=== PATIENT | female | born 1945 | race Caucasian/White ===

== ENCOUNTER 2016-12-28 01:30 | Inpatient (IN) | payer MEDICARE, MEDICAID ==
[~2016-12-28] VITALS: Ht 157.5 cm; Wt 86.6 kg
[2016-12-29] MEDS ORDERED: MULT-516 PO (02:30)
[2016-12-29] MEDS ORDERED: METO10TA2 PO (02:30)
[2016-12-29] MEDS ORDERED: BISA10SU54 PR (02:30)
[2016-12-29] MEDS ORDERED: PANT40TA3 PO (02:30)
[2016-12-29] MEDS ORDERED: ZINC220C4 PO (02:30)
[2016-12-29] MEDS ORDERED: IBUP800T PO (02:30)
[2016-12-29] MEDS ORDERED: SENN8.6T4 PO (02:30)
[2016-12-29] MEDS ORDERED: TRAM50TA2 PO (02:30)
[2016-12-29] MEDS ORDERED: ASCO500T12 PO (02:30)
[2016-12-29] MEDS ORDERED: METH1TAB13 PO (02:30)
[2016-12-29 02:34] VITALS: BP 162/78
[2016-12-29] MEDS ORDERED: VANCOMYCIN PER PHARMACY MC PRN (04:00)
[2016-12-29] MEDS ORDERED: BISACODYL 10 MG SUPP PR PRN ×2 (04:00)
[2016-12-29] MEDS ORDERED: hydrALAzine 20 MG/ML, 1ML IVPush PRN (04:00)
[2016-12-29] MEDS ORDERED: VANCOMYCIN PMX 1GM/200ML 200 ML IV ONE (04:00)
[2016-12-29] MEDS ORDERED: ENALAPRILAT 1.25 MG/ML, 2ML IVPush PRN (04:00)
[2016-12-29] MEDS ORDERED: POLYETHYLENE GLYCOL 17 GM PACKET PO PRN (04:00)
[2016-12-29] MEDS ORDERED: ONDANSETRON 2MG/ML, 2ML IVPush PRN (04:00)
[2016-12-29] MEDS ORDERED: ACETAMINOPHEN 325 MG TABLET PO PRN (04:00)
[2016-12-29] MEDS ORDERED: OXYcodone IR 5MG TABLET PO PRN (04:00)
[2016-12-29] MEDS ORDERED: PIPERACILLIN/TAZO/PMX 3.375GM 50 ML IV SCH (04:00)
[2016-12-29] MEDS ORDERED: PHARMACOKINETIC MONITORING MC PRN (04:00)
[2016-12-29] MEDS: SODIUM CHLORIDE 0.9% 1,000 ML IV SCH ×2 (04:46→16:25)
[2016-12-29] MEDS ORDERED: VANCOMYCIN 1,500 MG in SODIUM CHLORIDE 0.9% 250 ML IV ONE (05:00)
[2016-12-29 06:07] LABS: ASPARTATE AMINO TRANSFERASE 16 U/L (15-37); BLOOD UREA NITROGEN 13 mg/dL (7-18)
[2016-12-29 06:11] LABS: ANISOCYTOSIS 1+; POLYCHROMASIA 1+
[2016-12-29 06:12] LABS: GIANT PLATELETS 1+; LARGE PLATELETS 1+
[2016-12-29 07:40] VITALS: BP 128/64
[2016-12-29] MEDS: MULTIVITAMIN 1 TABLET PO SCH (09:31)
[2016-12-29] MEDS: PANTOPROZOLE 40MG TABLET PO SCH (09:32)
[2016-12-29] MEDS: SENNA/DOCUSATE TABLET PO SCH (09:32)
[2016-12-29] MEDS: ASCORBIC ACID 500 MG TABLET PO SCH ×2 (09:32→21:00)
[2016-12-29] MEDS: AMPICILLIN/SULBACTAM 3 GM in SODIUM CHLORIDE 0.9% 100 ML IV SCH ×2 (12:21→18:21)
[2016-12-29] MEDS ORDERED: GADOBUTROL 7.5 MMOL/7.5 ML PFS ONE (12:47)
[2016-12-29 14:30] VITALS: BP 127/60
[2016-12-29 19:52] VITALS: BP 128/74
[2016-12-30] MEDS: AMPICILLIN/SULBACTAM 3 GM in SODIUM CHLORIDE 0.9% 100 ML IV SCH ×4 (00:14→22:23)
[2016-12-30 01:37] VITALS: BP 141/66
[2016-12-30 05:19] LABS: BLOOD UREA NITROGEN 9 mg/dL (7-18)
[2016-12-30] MEDS: SENNA/DOCUSATE TABLET PO SCH (08:06)
[2016-12-30] MEDS: PANTOPROZOLE 40MG TABLET PO SCH (08:06)
[2016-12-30] MEDS: MULTIVITAMIN 1 TABLET PO SCH (08:06)
[2016-12-30] MEDS: ASCORBIC ACID 500 MG TABLET PO SCH ×2 (08:07→22:23)
[2016-12-30 08:55] VITALS: BP 145/71
[2016-12-30] MEDS: VANCOMYCIN 1,500 MG in SODIUM CHLORIDE 0.9% 250 ML IV SCH (12:15)
[2016-12-30 13:15] VITALS: BP 159/69
[2016-12-30 21:05] VITALS: BP 154/56
[2016-12-31 02:51] VITALS: BP 139/68
[2016-12-31] MEDS: AMPICILLIN/SULBACTAM 3 GM in SODIUM CHLORIDE 0.9% 100 ML IV SCH ×4 (04:19→22:29)
[2016-12-31 05:50] LABS: BLOOD UREA NITROGEN 9 mg/dL (7-18)
[2016-12-31 07:18] VITALS: BP 133/73
[2016-12-31] MEDS ORDERED: POTASSIUM CHLORIDE 20 MEQ TAB.ER.PRT PO ONE ×2 (08:00)
[2016-12-31] MEDS: PANTOPROZOLE 40MG TABLET PO SCH (10:35)
[2016-12-31] MEDS: SENNA/DOCUSATE TABLET PO SCH (10:35)
[2016-12-31] MEDS: MULTIVITAMIN 1 TABLET PO SCH (10:35)
[2016-12-31] MEDS: ASCORBIC ACID 500 MG TABLET PO SCH ×2 (10:35→22:29)
[2016-12-31] MEDS: VANCOMYCIN 1,500 MG in SODIUM CHLORIDE 0.9% 250 ML IV SCH (11:00)
[2016-12-31 13:39] VITALS: BP 126/72
[2016-12-31 19:09] VITALS: BP 132/69
[2017-01-01 00:20] VITALS: BP 101/51
[2017-01-01] MEDS: AMPICILLIN/SULBACTAM 3 GM in SODIUM CHLORIDE 0.9% 100 ML IV SCH ×3 (04:02→16:31)
[2017-01-01 08:22] VITALS: BP 146/67
[2017-01-01] MEDS: SENNA/DOCUSATE TABLET PO SCH (09:46)
[2017-01-01] MEDS: MULTIVITAMIN 1 TABLET PO SCH (09:46)
[2017-01-01] MEDS: PANTOPROZOLE 40MG TABLET PO SCH (09:46)
[2017-01-01] MEDS: ASCORBIC ACID 500 MG TABLET PO SCH ×2 (09:46→20:01)
[2017-01-01] MEDS: VANCOMYCIN 1,500 MG in SODIUM CHLORIDE 0.9% 250 ML IV SCH (11:10)
[2017-01-01 13:11] VITALS: BP 134/71
[2017-01-01 19:45] VITALS: BP 150/60
[2017-01-01] MEDS: CEFTAROLINE 600 MG in SODIUM CHLORIDE 0.9% 100 ML IV SCH (20:02)
[2017-01-02 00:39] VITALS: BP 119/41
[2017-01-02 06:17] LABS: BLOOD UREA NITROGEN 7 mg/dL (7-18)
[2017-01-02 06:28] LABS: ANISOCYTOSIS 1+
[2017-01-02 06:29] LABS: GIANT PLATELETS 1+; LARGE PLATELETS 1+
[2017-01-02] MEDS: PANTOPROZOLE 40MG TABLET PO SCH (07:43)
[2017-01-02] MEDS: MULTIVITAMIN 1 TABLET PO SCH (07:43)
[2017-01-02] MEDS: ASCORBIC ACID 500 MG TABLET PO SCH ×2 (07:44→20:07)
[2017-01-02] MEDS: SENNA/DOCUSATE TABLET PO SCH (07:44)
[2017-01-02] MEDS: CEFTAROLINE 600 MG in SODIUM CHLORIDE 0.9% 100 ML IV SCH ×2 (08:27→19:14)
[2017-01-02 08:31] VITALS: BP 156/73
[2017-01-02] MEDS ORDERED: MIDAZOLAM 1 MG/ML, 2ML ONE (10:21)
[2017-01-02] MEDS ORDERED: FENTANYL PF 100 MCG/2ML ONE (10:21)
[2017-01-02] MEDS ORDERED: PROPOFOL 10 MG/ML, 20ML ONE (10:30)
[2017-01-02] MEDS ORDERED: EPHEDRINE 50 MG/ML, 1ML ONE (10:30)
[2017-01-02] MEDS ORDERED: EPINEPHRINE 1 MG/ML, 1ML ONE (10:30)
[2017-01-02 12:58] VITALS: BP 127/57
[2017-01-02 19:22] VITALS: BP 162/77
[2017-01-02 20:51] VITALS: BP 90/51
[2017-01-02] MEDS ORDERED: VANCOMYCIN 1,500 MG in SODIUM CHLORIDE 0.9% 250 ML IV SCH (23:00)
[2017-01-02 23:09] VITALS: BP 98/32
[2017-01-03 02:06] VITALS: BP 112/50
[2017-01-03] MEDS ORDERED: SODIUM CHLORIDE 0.9%, 500ML IVBOLUS ONE (05:00)
[2017-01-03 05:49] LABS: BLOOD UREA NITROGEN 10 mg/dL (7-18)
[2017-01-03 06:48] VITALS: BP 95/47
[2017-01-03] MEDS: CEFTAROLINE 600 MG in SODIUM CHLORIDE 0.9% 100 ML IV SCH ×2 (07:59→19:58)
[2017-01-03] MEDS: ASCORBIC ACID 500 MG TABLET PO SCH ×2 (08:09→21:51)
[2017-01-03] MEDS: MULTIVITAMIN 1 TABLET PO SCH (08:10)
[2017-01-03] MEDS: PANTOPROZOLE 40MG TABLET PO SCH (08:10)
[2017-01-03] MEDS: SENNA/DOCUSATE TABLET PO SCH (08:10)
[2017-01-03] MEDS ORDERED: MAGNESIUM SULFATE PMX 2GM/50ML 50 ML IV ONE (10:30)
[2017-01-03] MEDS: MICAFUNGIN 100 MG in SODIUM CHLORIDE 0.9% 100 ML IV SCH (12:37)
[2017-01-03 13:48] VITALS: BP 104/53
[2017-01-03 19:44] VITALS: BP 131/62
[2017-01-04 01:47] VITALS: BP 122/57
[2017-01-04 06:27] LABS: ASPARTATE AMINO TRANSFERASE 15 U/L (15-37); BLOOD UREA NITROGEN 10 mg/dL (7-18)
[2017-01-04 06:33] LABS: DIFF TOTAL CELLS COUNTED 100 CELL DIFF
[2017-01-04 06:34] LABS: ANISOCYTOSIS 1+; LARGE PLATELETS 1+; VERIFY COUNTS? YES
[2017-01-04] MEDS: CEFTAROLINE 600 MG in SODIUM CHLORIDE 0.9% 100 ML IV SCH ×2 (08:24→23:09)
[2017-01-04 09:02] VITALS: BP 118/79
[2017-01-04] MEDS: PANTOPROZOLE 40MG TABLET PO SCH (09:25)
[2017-01-04] MEDS: SENNA/DOCUSATE TABLET PO SCH (09:25)
[2017-01-04] MEDS: ASCORBIC ACID 500 MG TABLET PO SCH ×2 (09:26→21:29)
[2017-01-04] MEDS: MULTIVITAMIN 1 TABLET PO SCH (09:27)
[2017-01-04] MEDS: MICAFUNGIN 100 MG in SODIUM CHLORIDE 0.9% 100 ML IV SCH (13:04)
[2017-01-04 15:14] VITALS: BP 93/54
[2017-01-04] MEDS ORDERED: SODIUM CHLORIDE 0.9%, 500ML IVBOLUS ONE (17:00)
[2017-01-04 18:59] VITALS: BP 116/58
[2017-01-05 02:08] VITALS: BP 148/51
[2017-01-05 06:10] LABS: BLOOD UREA NITROGEN 12 mg/dL (7-18)
[2017-01-05 06:39] LABS: DIFF TOTAL CELLS COUNTED 100 CELL DIFF
[2017-01-05 06:41] LABS: ANISOCYTOSIS 1+; GIANT PLATELETS 1+; LARGE PLATELETS 1+; POLYCHROMASIA 1+; VERIFY COUNTS? YES
[2017-01-05 07:50] VITALS: BP 141/69
[2017-01-05] MEDS: SENNA/DOCUSATE TABLET PO SCH (09:52)
[2017-01-05] MEDS: PANTOPROZOLE 40MG TABLET PO SCH (09:52)
[2017-01-05] MEDS: MULTIVITAMIN 1 TABLET PO SCH (09:52)
[2017-01-05] MEDS: ASCORBIC ACID 500 MG TABLET PO SCH ×2 (09:52→21:45)
[2017-01-05] MEDS: CEFTAROLINE 600 MG in SODIUM CHLORIDE 0.9% 100 ML IV SCH ×2 (09:52→21:45)
[2017-01-05] MEDS: MICAFUNGIN 100 MG in SODIUM CHLORIDE 0.9% 100 ML IV SCH (12:00)
[2017-01-05] MEDS: FLUCONAZOLE 200 MG TABLET PO SCH (14:06)
[2017-01-05 14:14] VITALS: BP 106/53
[2017-01-05 18:36] VITALS: BP 114/62
[2017-01-05] MEDS: HEPARIN 5,000 UNITS/ML, 1ML SQ SCH (21:46)
[2017-01-06 02:03] VITALS: BP 101/53
[2017-01-06] MEDS: HEPARIN 5,000 UNITS/ML, 1ML SQ SCH ×3 (04:31→21:55)
[2017-01-06 05:02] LABS: BLOOD UREA NITROGEN 13 mg/dL (7-18)
[2017-01-06 08:08] VITALS: BP 115/55
[2017-01-06] MEDS: PANTOPROZOLE 40MG TABLET PO SCH (08:14)
[2017-01-06] MEDS: ASCORBIC ACID 500 MG TABLET PO SCH ×2 (08:14→21:55)
[2017-01-06] MEDS: SENNA/DOCUSATE TABLET PO SCH (08:15)
[2017-01-06] MEDS: MULTIVITAMIN 1 TABLET PO SCH (08:15)
[2017-01-06] MEDS: FLUCONAZOLE 200 MG TABLET PO SCH (08:15)
[2017-01-06] MEDS: CEFTAROLINE 600 MG in SODIUM CHLORIDE 0.9% 100 ML IV SCH ×2 (10:13→21:55)
[2017-01-06] MEDS ORDERED: PICC FLUSH PROTOCOL XX PRN (15:00)
[2017-01-06 16:00] VITALS: BP 134/58
[2017-01-06 18:42] VITALS: BP 109/56
[2017-01-07 02:08] VITALS: BP 128/46
[2017-01-07 05:26] LABS: BLOOD UREA NITROGEN 13 mg/dL (7-18)
[2017-01-07 05:30] LABS: ASPARTATE AMINO TRANSFERASE 14 U/L (15-37)
[2017-01-07] MEDS: HEPARIN 5,000 UNITS/ML, 1ML SQ SCH ×4 (06:03→23:26)
[2017-01-07 08:06] VITALS: BP 123/58
[2017-01-07] MEDS: FLUCONAZOLE 200 MG TABLET PO SCH (09:00)
[2017-01-07] MEDS: CEFTAROLINE 600 MG in SODIUM CHLORIDE 0.9% 100 ML IV SCH ×2 (09:39→23:26)
[2017-01-07] MEDS: SENNA/DOCUSATE TABLET PO SCH (09:40)
[2017-01-07] MEDS: ASCORBIC ACID 500 MG TABLET PO SCH ×2 (09:40→23:27)
[2017-01-07] MEDS: MULTIVITAMIN 1 TABLET PO SCH (09:40)
[2017-01-07] MEDS: PANTOPROZOLE 40MG TABLET PO SCH (09:40)
[2017-01-07] MEDS: MICAFUNGIN 100 MG in SODIUM CHLORIDE 0.9% 100 ML IV SCH (11:26)
[2017-01-07 13:09] VITALS: BP 147/62
[2017-01-07 19:05] VITALS: BP 134/55
[2017-01-08 02:47] VITALS: BP 127/55
[2017-01-08] MEDS: HEPARIN 5,000 UNITS/ML, 1ML SQ SCH ×3 (05:20→22:14)
[2017-01-08 05:31] LABS: BLOOD UREA NITROGEN 11 mg/dL (7-18)
[2017-01-08 06:09] LABS: ANISOCYTOSIS 1+; LARGE PLATELETS 1+; MICROCYTOSIS 1+; POLYCHROMASIA 1+
[2017-01-08 06:59] VITALS: BP 119/57
[2017-01-08] MEDS: PANTOPROZOLE 40MG TABLET PO SCH (09:30)
[2017-01-08] MEDS: MULTIVITAMIN 1 TABLET PO SCH (09:31)
[2017-01-08] MEDS: ASCORBIC ACID 500 MG TABLET PO SCH ×2 (09:31→22:13)
[2017-01-08] MEDS: SENNA/DOCUSATE TABLET PO SCH (09:35)
[2017-01-08] MEDS: CEFTAROLINE 600 MG in SODIUM CHLORIDE 0.9% 100 ML IV SCH ×2 (10:13→22:14)
[2017-01-08] MEDS: MICAFUNGIN 100 MG in SODIUM CHLORIDE 0.9% 100 ML IV SCH (11:47)
[2017-01-08 14:38] VITALS: BP 138/54
[2017-01-08 19:33] VITALS: BP 110/55
[2017-01-08] MEDS ORDERED: PICC FLUSH PROTOCOL XX PRN (20:00)
[2017-01-08] MEDS ORDERED: BISACODYL 10 MG SUPP PR PRN (20:00)
[2017-01-08] MEDS ORDERED: POLYETHYLENE GLYCOL 17 GM PACKET PO PRN (20:00)
[2017-01-08] MEDS ORDERED: ACETAMINOPHEN 325 MG TABLET PO PRN (20:00)
[2017-01-09 02:58] VITALS: BP 147/59
[2017-01-09 04:57] LABS: BLOOD UREA NITROGEN 9 mg/dL (7-18)
[2017-01-09 05:01] LABS: ASPARTATE AMINO TRANSFERASE 19 U/L (15-37); C-REACTIVE PROTEIN, QUANT 0.92 mg/dL (0.02-0.49)
[2017-01-09 05:08] LABS: DIFF TOTAL CELLS COUNTED 100 CELL DIFF
[2017-01-09 05:10] LABS: ANISOCYTOSIS 1+; LARGE PLATELETS 1+; MICROCYTOSIS 1+; POLYCHROMASIA 1+; VERIFY COUNTS? YES
[2017-01-09] MEDS: HEPARIN 5,000 UNITS/ML, 1ML SQ SCH ×3 (06:04→21:21)
[2017-01-09 07:37] VITALS: BP 146/67
[2017-01-09] MEDS: SENNA/DOCUSATE TABLET PO SCH (08:49)
[2017-01-09] MEDS: ASCORBIC ACID 500 MG TABLET PO SCH ×2 (08:49→21:20)
[2017-01-09] MEDS: CEFTAROLINE 600 MG in SODIUM CHLORIDE 0.9% 100 ML IV SCH ×2 (08:49→21:20)
[2017-01-09] MEDS: MULTIVITAMIN 1 TABLET PO SCH (08:49)
[2017-01-09] MEDS: PANTOPROZOLE 40MG TABLET PO SCH (08:49)
[2017-01-09] MEDS ORDERED: SILVER NITRATE STICK TP ONE (11:38)
[2017-01-09] MEDS: MICAFUNGIN 100 MG in SODIUM CHLORIDE 0.9% 100 ML IV SCH (11:51)
[2017-01-09 12:55] VITALS: BP 138/65
[2017-01-09 17:39] LABS: DIFF TOTAL CELLS COUNTED 100 CELL DIFF
[2017-01-09 17:41] LABS: ANISOCYTOSIS 2+; HYPOCHROMIA 1+; MICROCYTOSIS 1+; POLYCHROMASIA 2+; VERIFY COUNTS? YES
[2017-01-09 17:42] LABS: GIANT PLATELETS 1+
[2017-01-09 19:00] VITALS: BP 131/72
[2017-01-10 01:49] VITALS: BP 113/52
[2017-01-10] MEDS: HEPARIN 5,000 UNITS/ML, 1ML SQ SCH ×3 (02:16→20:54)
[2017-01-10 05:55] LABS: BLOOD UREA NITROGEN 13 mg/dL (7-18)
[2017-01-10 06:01] LABS: ASPARTATE AMINO TRANSFERASE 17 U/L (15-37)
[2017-01-10 06:50] VITALS: BP 136/53
[2017-01-10] MEDS: ASCORBIC ACID 500 MG TABLET PO SCH ×2 (09:23→21:00)
[2017-01-10] MEDS: MULTIVITAMIN 1 TABLET PO SCH (09:23)
[2017-01-10] MEDS: PANTOPROZOLE 40MG TABLET PO SCH (09:23)
[2017-01-10] MEDS: SENNA/DOCUSATE TABLET PO SCH (09:24)
[2017-01-10] MEDS: CEFTAROLINE 600 MG in SODIUM CHLORIDE 0.9% 100 ML IV SCH ×2 (09:24→21:18)
[2017-01-10] MEDS: MICAFUNGIN 100 MG in SODIUM CHLORIDE 0.9% 100 ML IV SCH (11:53)
[2017-01-10 13:09] VITALS: BP 132/60
[2017-01-10 19:57] VITALS: BP 131/59
[2017-01-11 04:54] VITALS: BP 139/58
[2017-01-11] MEDS: HEPARIN 5,000 UNITS/ML, 1ML SQ SCH ×2 (05:34→11:35)
[2017-01-11 06:16] LABS: BLOOD UREA NITROGEN 11 mg/dL (7-18)
[2017-01-11 06:21] LABS: DIFF TOTAL CELLS COUNTED 100 CELL DIFF
[2017-01-11 06:26] LABS: VERIFY COUNTS? YES
[2017-01-11 06:27] LABS: ANISOCYTOSIS 2+; POIKILOCYTOSIS 1+; POLYCHROMASIA 1+
[2017-01-11 06:28] LABS: GIANT PLATELETS 1+; LARGE PLATELETS 1+
[2017-01-11 08:10] VITALS: BP 133/71
[2017-01-11] MEDS: ASCORBIC ACID 500 MG TABLET PO SCH ×2 (08:58→21:57)
[2017-01-11] MEDS: SENNA/DOCUSATE TABLET PO SCH (08:58)
[2017-01-11] MEDS: MULTIVITAMIN 1 TABLET PO SCH (08:58)
[2017-01-11] MEDS: PANTOPROZOLE 40MG TABLET PO SCH (08:58)
[2017-01-11] MEDS: CEFTAROLINE 600 MG in SODIUM CHLORIDE 0.9% 100 ML IV SCH ×2 (08:59→21:57)
[2017-01-11] MEDS: morphine SULFATE 10 MG/ML, 1ML IVPush PRN (10:31)
[2017-01-11] MEDS: MICAFUNGIN 100 MG in SODIUM CHLORIDE 0.9% 100 ML IV SCH (11:14)
[2017-01-11 13:38] VITALS: BP 97/60
[2017-01-11 19:58] VITALS: BP 131/48
[2017-01-12] VITALS (7 sets, daily range): BP systolic 94–135; BP diastolic 43–62
[2017-01-12 05:24] LABS: BLOOD UREA NITROGEN 12 mg/dL (7-18)
[2017-01-12 05:50] LABS: DIFF TOTAL CELLS COUNTED 100 CELL DIFF
[2017-01-12 05:57] LABS: ANISOCYTOSIS 2+; VERIFY COUNTS? YES
[2017-01-12 05:58] LABS: POLYCHROMASIA 1+
[2017-01-12 05:59] LABS: GIANT PLATELETS 1+; LARGE PLATELETS 1+; OVALOCYTES 1+; POIKILOCYTOSIS 2+; TARGET CELLS 1+
[2017-01-12] MEDS: MULTIVITAMIN 1 TABLET PO SCH (09:17)
[2017-01-12] MEDS: SENNA/DOCUSATE TABLET PO SCH (09:17)
[2017-01-12] MEDS: ASCORBIC ACID 500 MG TABLET PO SCH ×2 (09:17→20:42)
[2017-01-12] MEDS: PANTOPROZOLE 40MG TABLET PO SCH (09:17)
[2017-01-12] MEDS: CEFTAROLINE 600 MG in SODIUM CHLORIDE 0.9% 100 ML IV SCH ×2 (09:17→20:42)
[2017-01-12] MEDS: MICAFUNGIN 100 MG in SODIUM CHLORIDE 0.9% 100 ML IV SCH (11:39)
[2017-01-13 04:32] VITALS: BP 110/53
[2017-01-13 08:45] VITALS: BP 133/67
[2017-01-13 09:14] LABS: BLOOD UREA NITROGEN 9 mg/dL (7-18)
[2017-01-13] MEDS: ASCORBIC ACID 500 MG TABLET PO SCH ×2 (09:26→21:35)
[2017-01-13] MEDS: CEFTAROLINE 600 MG in SODIUM CHLORIDE 0.9% 100 ML IV SCH ×2 (09:26→21:36)
[2017-01-13] MEDS: PANTOPROZOLE 40MG TABLET PO SCH (09:26)
[2017-01-13] MEDS: MULTIVITAMIN 1 TABLET PO SCH (09:26)
[2017-01-13] MEDS: SENNA/DOCUSATE TABLET PO SCH (09:27)
[2017-01-13 09:32] LABS: DIFF TOTAL CELLS COUNTED 100 CELL DIFF
[2017-01-13 09:37] LABS: ANISOCYTOSIS 2+; POLYCHROMASIA 1+; VERIFY COUNTS? YES
[2017-01-13 09:45] LABS: LARGE PLATELETS 1+
[2017-01-13 09:46] LABS: GIANT PLATELETS 1+
[2017-01-13] MEDS: morphine SULFATE 10 MG/ML, 1ML IVPush PRN (10:51)
[2017-01-13] MEDS: MICAFUNGIN 100 MG in SODIUM CHLORIDE 0.9% 100 ML IV SCH (10:51)
[2017-01-13 14:10] VITALS: BP 119/60
[2017-01-13 18:55] VITALS: BP 134/51
[2017-01-14 01:26] VITALS: BP 127/58
[2017-01-14 08:38] VITALS: BP 164/72
[2017-01-14] MEDS: SENNA/DOCUSATE TABLET PO SCH (09:00)
[2017-01-14] MEDS: CEFTAROLINE 600 MG in SODIUM CHLORIDE 0.9% 100 ML IV SCH (09:18)
[2017-01-14] MEDS: MULTIVITAMIN 1 TABLET PO SCH (09:20)
[2017-01-14] MEDS: PANTOPROZOLE 40MG TABLET PO SCH (09:20)
[2017-01-14] MEDS: ASCORBIC ACID 500 MG TABLET PO SCH (09:20)
[2017-01-14 09:27] VITALS: BP 157/66
[2017-01-14] MEDS: MICAFUNGIN 100 MG in SODIUM CHLORIDE 0.9% 100 ML IV SCH (11:21)
[2017-01-14 12:57] VITALS: BP 136/52
== END 2017-01-14 14:32 | DRG 463 ==
LOC: EDSTATUS 01:30 → 4NOR 12-29 01:31
PROVIDERS: ADMIT Internal Medicine; ATTEND Internal Medicine
PROC: 02HV33Z Insertion of Infusion Device into Superior Vena Cava, Percutaneous Approach (ICD-10-PCS; 2017-01-02)
PROC: 0JBM0ZZ Excision of Left Upper Leg Subcutaneous Tissue and Fascia, Open Approach (ICD-10-PCS; 2017-01-02)
PROC: 0QB30ZZ Excision of Left Pelvic Bone, Open Approach (ICD-10-PCS; principal; 2017-01-02 11:30)
PROC: 30233N1 Transfusion of Nonautologous Red Blood Cells into Peripheral Vein, Percutaneous Approach (ICD-10-PCS; 2017-01-12)
DX: M86.152 Other acute osteomyelitis, left femur (principal); E43 Unspecified severe protein-calorie malnutrition; L02.818 Cutaneous abscess of other sites; L89.159 Pressure ulcer of sacral region, unspecified stage; G80.9 Cerebral palsy, unspecified; E87.6 Hypokalemia; D64.9 Anemia, unspecified; D69.6 Thrombocytopenia, unspecified; D72.825 Bandemia; E78.5 Hyperlipidemia, unspecified; I95.9 Hypotension, unspecified; F79 Unspecified intellectual disabilities; I10 Essential (primary) hypertension; L89.329 Pressure ulcer of left buttock, unspecified stage; Z87.440 Personal history of urinary (tract) infections; Z68.34 Body mass index [BMI] 34.0-34.9, adult
CPT/HCPCS: 36415; 36569; 72197; 76937; 77001; 80048; 80053; 80202; 81001; 82040; 83036; 83735; 84145; 84439; 84443; 85025; 85610; 85651; 85730; 86140; 86850; 86900; 86923; 87040; 87070; 87075; 87077; 87086; 87106; 87147; 87186; 87205; 93005; A9585; J0171; J0295; J0712; J1644; J2248; J2250; J2543; J2704; J3010; J3370; C1751; J2270; J3475; J7030; J7040; J7050; P9016